=== PATIENT | male | born 1955 | race Caucasian/White ===

== ENCOUNTER 2018-09-21 19:41 | Emergency (ER) | payer BC ==
[~2018-09-21] VITALS: Ht 170.2 cm; Wt 70.3 kg
[2018-09-21] MEDS ORDERED: MECLIZINE HCL 25 MG TABLET PO ONE (20:00)
[2018-09-21] MEDS ORDERED: MECLIZINE HCL 12.5 MG TABLET ONE (20:02)
--- NOTE | 2018-09-21 20:08 | NUR ---
[id number] FROM [facility] C/O DIZZINESS AND WEAKNESS, WORSE WHEN STANDING UP. PT STATES HE HAD TWO DRINKS AT [employer]. -CP,-SOB,-N/V/D. PT AAOX4, VSS. SPEAKING FLUENTLY, NO FACIAL DROOP, STRONG EQUAL COAL SCREENER. DENIES WEAKNESS, MCCLURE, VISUAL CHANGES AT THIS TIME. PT SEEN & EVAL'D BY DR. SPENCE. PLACED ON MAGICIAN/ILLUSIONIST, SR. WILL CONT TO MONITOR.
[2018-09-21 20:17] LABS: BASOPHILS % (AUTO) 0.6 % (0.0-2.0); EOSINOPHILS % (AUTO) 3.4 % (0.0-6.0); HEMATOCRIT 43 % (39-51); HEMOGLOBIN 14.8 g/dL (13.5-17.5); LYMPHOCYTES # (AUTO) 1.4 /CMM (0.8-4.8); LYMPHOCYTES % (AUTO) 31.1 % (20.0-44.0); MEAN CORPUSCULAR HGB CONC 35 g/dl (31.0-36.0); MEAN CORPUSCULAR VOLUME 96 fL (80-96); MONOCYTES # (AUTO) 0.4 /CMM (0.1-1.30); MONOCYTES % (AUTO) 8.2 % (2.0-12.0); NEUTROPHILS # (AUTO) 2.6 /CMM (1.8-8.9); NEUTROPHILS % (AUTO) 56.7 % (43.0-81.0); PLATELET COUNT (AUTO) 211 /CMM (150-450); RED BLOOD CELL COUNT(AUTO) 4.46 MIL/uL (4.5-6.0); WHITE BLOOD COUNT (AUTO) 4.5 K/uL (4.3-11.0)
[2018-09-21 20:22] LABS: CALCIUM, SERUM 8.2 mg/dL (8.5-10.1); CARBON DIOXIDE 25 mmol/L (21-32); CHLORIDE 104 mmol/L (98-107); CREATININE 1.1 mg/dL (0.6-1.3); GLUCOSE 116 mg/dL (74-106); POTASSIUM 3.5 mmol/L (3.5-5.1); SODIUM SERUM 138 mmol/L (136-145); UREA NITROGEN, BLOOD 20 mg/dL (7-18)
--- NOTE | 2018-09-21 21:43 | NUR ---
Patient discharged to home in stable condition. Written and verbal after care instructions given. Patient verbalizes understanding of instruction.
[2018-09-21 21:44] VITALS: BP 140/84
== END 2018-09-21 21:45 | disposition home or self-care (01) ==
LOC: ER 19:41
DX: R42 Dizziness and giddiness (principal); Z98.890 Other specified postprocedural states; Z60.2 Problems related to living alone
CPT/HCPCS: 36415; 70450; 80048; 84484; 85025; 93005; 99284; J8597 ×2